=== PATIENT | female | born 1950 | race Caucasian/White ===

== ENCOUNTER 2017-01-29 15:55 | Inpatient (IN) | payer OTHER ==
[~2017-01-29] VITALS: Ht 167.6 cm; Wt 102.6 kg
--- NOTE | ~2017-01-29 | 2DMMODE ---
[facility] [place] [address] 2 D/M-MODE ECHOCARDIOGRAM Name: THERESE HINES Room #: 213-P ADM IN M.R.#: [id number] Admission: 01/29/17 Attend Phys: Anthony Thompson Discharge: Date of : 52 Date of Service: 01/31/17 1304 Report #: [id number] THIS REPORT FOR: //name// APPROVED REPORT Study performed: 01/31/2017 11:18:55 EXAM: Comprehensive 2D, Doppler, and color-flow Echocardiogram Patient Location: Bedside Blood Pressure: 119/61 mmHg HR: 90 bpm Other Information Study Quality: Adequate Indications Dyspnea Hypertension/HDD Pulmonary Embolism 2D Dimensions LVEF(%): 66.21 (>50%) IVSd: 15.41 (7-11mm) LVOT Diam: 20.83 (18-24mm) LVDd: 40.35 mm PWd: 15.52 (7-11mm) Ascending Aorta: 33.23 mm LVDs: 25.81 (25-40mm) IVC: 18.00 mm Aortic Root: 36.62 mm Liriano's LVEF: 66.21 % Aortic Valve AoV Peak Abad.: 1.35 m/s AO Peak Gr.: 7.25 mmHg LV Max P.73 mmHg LV Max: 1.09 m/s Mitral Valve MV PHT: 87.45 ms MV E Max Abad.: 0.72 m/s E/A Ratio: 0.8 MV A Abad.: 0.88 m/s MV Decel. Time: 301.56 ms Pulmonary Valve PV Peak Abad.: 0.94 m/s PV Peak Gr.: 3.53 mmHg [facility] [address] [address] [place] [address] 2 D/M-MODE ECHOCARDIOGRAM Name: THERESE HINES Room #: 213- ADM IN .R.#: [id number] Admission: 01/29/17 Attend Phys: Anthony Thompson Discharge: Date of : 52 Date of Service: 01/31/17 1304 Report #: [id number] Tricuspid Valve RAP Estimate: 5.00 mmHg Left Ventricle The left ventricle is normal size. There is normal LV segmental wall motion. There is normal left ventricular wall thickness. The left ventricular systolic function is normal. The left ventricular ejection fraction is within the normal range. LVEF is 60-65%. Grade I - abnormal relaxation pattern. Right Ventricle The right ventricle is normal size. The right ventricular systolic function is normal. Atria The left atrium size is normal. The right atrium size is normal. Aortic Valve The Aortic valve is sclerotic. Trace aortic regurgitation. There is no aortic valvular stenosis. Mitral Valve The mitral valve is normal in structure. There is no mitral valve regurgitation noted. Tricuspid Valve The tricuspid valve is normal in structure. There is no tricuspid valve regurgitation noted. Pulmonic Valve The pulmonary valve is normal in structure. There is no pulmonic valvular regurgitation. Great Vessels The aortic root is normal in size. IVC is normal in size and collapses >50% with inspiration. Pericardium There is no pericardial effusion. <Conclusion> The left ventricular systolic function is normal. The left ventricular ejection fraction is 55-60% There is normal LV segmental wall motion. Normal RV size and function [facility] [place] [address] 2 D/M-MODE ECHOCARDIOGRAM Name: THERESE HINES Room #: 213-P ADM IN M.R.#: [id number] Admission: 01/29/17 Attend Phys: Anthony Thompson Discharge: Date of : 52 Date of Service: 01/31/17 1304 Report #: [id number] The Aortic valve is sclerotic. There is no aortic valvular stenosis or insufficiency. The mitral valve is normal in structure.There is no mitral valve regurgitation. Pulmonary artery pressure could not be ascertained. There is no pericardial effusion. <ELECTRONICALLY SIGNED> By: Kyle Rosario MD, [facility] 01/31/17 1304 1304 1304 Kyle Rosario MD, FACC /INF
--- NOTE | ~2017-01-29 | EKG ---
[place] [address] [facility] [place] [address] ELECTROCARDIOGRAM REPORT Name: THERESE HINES Room #: 213-P ADM IN M.R.#: [id number] Admission: 01/29/17 Attend Phys: Kelin Steven MD Discharge: Date of : 52 Report #: [id number] THIS REPORT FOR: //name// [facility] ED Test Date: 2017-01-29 Test Time: 17:08:22 Pat Name: THERESE HINES Department: Room: 213 Gender: F Make Up Girl: MZOOK : 1950 Requested By: Malachi Heath Order Number: [id number] MD: Kyle Rosario Measurements Intervals [place] Rate: 80 P: 19 KS: 170 QRS: -6 QRSD: 85 T: 40 QT: 390 QTc: 450 Interpretive Statements Sinus rhythm Atrial premature complex Low voltage, precordial leads No previous ECG available for comparison Electronically Signed On 01-30-2017 11:48:23 CDT by Kyle Rosario [email or web address] <ELECTRONICALLY SIGNED> By: Kyle Rosario MD, [facility] 01/30/17 1148 1708 07 Kyle Rosario MD, FACC /EPI
--- NOTE | ~2017-01-29 | H ---
[facility] [place] [address] HISTORY AND PHYSICAL Name: THERESE HINES Room #: 213-P ADM IN M.R.#: [id number] Admission: 01/29/17 Attend Phys: Kelin Steven MD Discharge: Date of : 52 Report #: [id number] THIS REPORT FOR: //name// CC: FAM unknown Kelin Steven A 66-year-old female, 2 days status post right knee replacement for degenerative arthritis with hypoxemia noted at the orthopedic institute. HISTORY OF PRESENT ILLNESS: This is a patient who was having difficulty with low oxygen saturations postoperatively at the orthopedic institute and there was some concern that may be this represented pulmonary embolism and she was sent over to the emergency room for further evaluation. The patient denies significant shortness of breath. Denies chest discomfort, tightness, orthopnea, PND, but is concerned because of the saturation that she reports to be in the mid 80s. PAST MEDICAL HISTORY: Really minimal. She has degenerative arthritis. She also has hypertension. She has had a previous hysterectomy. MEDICATIONS: At home was lisinopril. SOCIAL HISTORY: She is single, previous smoker. No alcohol of any significance. REVIEW OF SYSTEMS: Mainly positive for urinary incontinence, which has been a longstanding duration. She denies symptoms of obstructive sleep apnea, but she is not sure because she is single. PHYSICAL EXAMINATION: GENERAL: Shows her lying in bed. She is awake, alert and oriented. She is in absolutely no distress. VITAL SIGNS: She has oxygen at about 2 liters. Vital signs were stable. HEENT: Otherwise, negative. NECK: Supple, without thyromegaly or adenopathy. CHEST: Clear. CARDIOVASCULAR: Shows a regular rate and rhythm without murmur. ABDOMEN: Soft and nontender without hepatosplenomegaly. EXTREMITIES: No cyanosis, clubbing or edema. There was a clean right knee bandage in place, no edema. NEUROLOGIC: Nonfocal. She is mildly anemic. LABORATORY DATA: She has a hemoglobin of 8.8. She has a creatinine of 1.2, D-dimer of 2.38. Troponins . BNP was 4795. Electrocardiogram showed no ischemia. She has a partially calcified 4 x 5 cm mass with calcified hilar nodes, otherwise negative findings. [address] [address] HISTORY AND PHYSICAL Name: THERESE HINES Room #: 213-P [facility] IN M.R.#: [id number] Admission: 01/29/17 Attend Phys: Kelin Steven MD Discharge: Date of : 52 Report #: [id number] ASSESSMENT: This is a 66-year-old female now 3 days status post right total knee replacement and certainly in no distress at this time and I am not sure that this represents ischemic heart disease. We need to be as thorough as we can here, but it just seems unlikely that without symptoms and EKG findings, this represents cardiac ischemia. The possibility of pulmonary embolism always exists and with the D-dimer elevated, CT to rule out pulmonary embolism is in order but this might just represent the findings of obstructive sleep apnea. Time will tell. We will follow her closely in the PCU with the help of the cardiology service. By: 0950 1306 Titi Turcios MD /nt
--- NOTE | ~2017-01-29 | D ---
[facility] [place] [address] DISCHARGE SUMMARY Name: THERESE HINES Room #: 213-P [facility] IN M.R.#: [id number] Admission: 01/29/17 Attend Phys: Kelin Steven MD Discharge: 02/01/17 Date of : 52 Report #: [id number] THIS REPORT FOR: //name// CC: FAM unknown Kelin Steven FINAL DIAGNOSES: 1. Pulmonary embolus. 2. Recent right total knee replacement. 3. Hyperkalemia. 4. Acute kidney injury. 5. Hypertension. HOSPITAL COURSE: The patient was transferred from an [facility] for evaluation of hypoxia. V/Q scan revealed a high probability of pulmonary embolus. She was treated initially with heparin and then converted to Xarelto. The cardiac service saw her in consultation, ruled out an acute cardiac event. Other home medications were continued, although ELVIS inhibitor was discontinued. She may have had a degree of ATN causing acute kidney injury related with slightly elevated creatinine during her stay and potassium. Her creatinine normalized and BUN was decreasing by the time of discharge. However, potassium remained slightly high and this was treated with oral Kayexalate. She had no other interval medical complications. However, her rehabilitation for a right total knee replacement was set back due to this acute illness. She was not stable to return home and was recommended for inpatient rehabilitation. PHYSICAL EXAMINATION: GENERAL: On the day of discharge, she was awake and alert. VITAL SIGNS: Stable. LUNGS: Clear. HEART: Regular. ABDOMEN: Soft. EXTREMITIES: Showed no edema. DISPOSITION: She will be transferred to [facility] under the care of Dr. Steven. She had physical and occupational therapy. Regular diet. Activity as tolerated. Daily dressing care. Follow up with her orthopedic surgeon in 2-4 weeks and she will follow up with her PCP following discharge from rehabilitation. She will continue Xarelto 15 mg b.i.d. for a total of 21 days and then switch to 20 mg daily for 3-6 months. <ELECTRONICALLY SIGNED> By: Tao Obregon MD 02/02/17 1240 0926 [id number] Tao Obregon MD /nt
--- NOTE | ~2017-01-29 | HC ---
[facility] [place] [address] CONSULTATION Name: THERESE HINES Room #: 213-P [facility] IN M.R.#: [id number] Admission: 01/29/17 Attend Phys: Kelin Steven MD Discharge: Date of : 52 Report #: [id number] THIS REPORT FOR: //name// CC: FAM unknown Kelin Steven DATE OF SERVICE: 01/30/2017 REASON FOR CONSULTATION: Shortness of breath, elevated troponin. HISTORY OF PRESENT ILLNESS: The patient is a very nice 66-year-old woman who has a history of hypertension. She underwent right total knee replacement on . On Tuesday morning, she developed hypoxemia and confusion. She was transported to [facility] where her troponin was elevated at 1.79. A ProBNP was elevated at 4795. She denies chest pain, pressure or ischemic type symptoms. She denies shortness of breath, heart failure symptoms, palpitations, near syncope or syncope. She was seen preoperatively by Dr. Acosta preoperatively in cardiovascular clearance. No specific testing was performed in this asymptomatic woman. MEDICATIONS: Her medicines include lisinopril and hydrochlorothiazide 20/25 one daily, verapamil SR 360 mg daily, Aldactone 50 mg twice daily. PAST MEDICAL HISTORY: Medical records have been reviewed and include history of hypertension, hysterectomy and recent knee replacement. SOCIAL HISTORY: She is a former smoker, lives alone. FAMILY HISTORY: Unremarkable for premature coronary disease. REVIEW OF SYSTEMS: All systems negative except as that noted above. PHYSICAL EXAMINATION: GENERAL: A pleasant woman in no distress. VITAL SIGNS: Blood pressure is 125/74, heart rate is 74 and regular. She is afebrile, 5 feet 6 inches tall, pounds. HEENT: There are neither xanthelasma, subcutaneous xanthomata, oral mucosal or digital cyanosis or kyphoscoliosis present. CHEST: Clear to auscultation and percussion. CARDIOVASCULAR: Regular rate and rhythm with an increased pulmonic closure sound. ABDOMEN: Soft and nontender. EXTREMITIES: Without cyanosis, clubbing or edema. Radial pulses are 2+. NEUROLOGIC: She is alert with a nonfocal exam. LABORATORY DATA: Sodium is 131, potassium 4.8, creatinine 1.4, magnesium 1[place] [address] CONSULTATION Name: THERESE HINES Room #: [facility] ADM IN M.R.#: [id number] Admission: 01/29/17 Attend Phys: Kelin Steven MD Discharge: Date of : 52 Report #: [id number] Troponin 1.79. White count 8.7, hemoglobin 8.8. Chest x-ray demonstrates no effusion or infiltrate. EKG, sinus rhythm, normal tracing. IMPRESSION: 1. Probable pulmonary embolism. 2. Status post right knee replacement. 3. Hypertension. 4. Chronic kidney disease. 5. Calcified lung mass, bening, chronic finding RECOMMENDATIONS: 1. V/Q scan. 2. Echocardiogram with Doppler. 3. If PE is confirmed, high risk features are present with elevated BNP and troponin. At this point, therapy has been started with intravenous heparin. Further thoughts will be forthcoming based on this evaluation. Thank you for asking me to participate in the care of this nice woman. <ELECTRONICALLY SIGNED> By: Kyle Rosario MD, FACC 01/31/17 0826 0906 0025 Kyle Rosario MD, FACC /nt
[2017-01-29 15:56] VITALS: BP 116/62
[2017-01-29] MEDS ORDERED: LISINOPRIL10 MG PO (16:35)
[2017-01-29 18:19] LABS: ABSOLUTE NEUTROPHILS 6.5 thou/uL (1.4-8.2); BASOPHILS 0.2 % (0.0-2.0); HEMATOCRIT 25.5 % (37.0-47.0); HEMOGLOBIN 8.8 gm/dL (12.0-15.0); LYMPHOCYTES 14.5 % (24.0-44.0); MCH 32.7 pg (26.0-34.0); MCHC 34.3 g/dL (28.0-37.0); MCV 95.4 fL (80.0-100.0); PLATELET COUNT 162 thou/uL (150-400); POLYS 74.3 % (36.0-66.0); RBC 2.68 mil/uL (4.20-5.00); RDW 12.9 % (10.5-14.5); WBC 8.7 thou/uL (4.0-11.0)
[2017-01-29 18:21] LABS: MANUAL DIFF NO
[2017-01-29 18:37] LABS: APTT 36.4 Seconds (24.5-32.8); INR 1.8; PROTIME 18.8 Seconds (9.3-11.4)
[2017-01-29 18:58] LABS: ALBUMIN 2.3 g/dL (3.4-5.0); CALCIUM 7.8 mg/dL (8.5-10.1); CREATININE 1.4 mg/dL (0.6-1.0); MAGNESIUM 1.7 mg/dL (1.8-2.4); POTASSIUM 4.8 mmol/L (3.5-5.1); TOTAL BILIRUBIN 0.2 mg/dL (<0.1-1.0); TOTAL PROTEIN 5.7 g/dL (6.4-8.2)
[2017-01-29 19:02] LABS: TROPONIN-I 1.12 ng/mL (<0.04-0.07)
[2017-01-29 20:43] VITALS: BP 114/84
[2017-01-29 21:50] VITALS: BP 113/67
[2017-01-29 23:40] VITALS: BP 106/63
[2017-01-30 03:47] VITALS: BP 125/74
[2017-01-30 08:00] VITALS: BP 126/76
[2017-01-30 09:04] LABS: CALCIUM 7.9 mg/dL (8.5-10.1); CREATININE 1.2 mg/dL (0.6-1.0); POTASSIUM 4.9 mmol/L (3.5-5.1)
[2017-01-30 12:00] VITALS: BP 115/68
[2017-01-30 16:45] VITALS: BP 116/70
[2017-01-30 19:51] VITALS: BP 115/54
[2017-01-31 03:00] VITALS: BP 112/64
[2017-01-31 03:20] LABS: HEMATOCRIT 25.2 % (37.0-47.0); HEMOGLOBIN 8.6 gm/dL (12.0-15.0); MCH 32.8 pg (26.0-34.0); MCHC 34.1 g/dL (28.0-37.0); MCV 96.2 fL (80.0-100.0); RBC 2.62 mil/uL (4.20-5.00); RDW 12.9 % (10.5-14.5); WBC 6.5 thou/uL (4.0-11.0)
[2017-01-31 03:58] LABS: CALCIUM 7.7 mg/dL (8.5-10.1); CREATININE 1.2 mg/dL (0.6-1.0); POTASSIUM 5.2 mmol/L (3.5-5.1)
[2017-01-31 07:21] VITALS: BP 119/61
[2017-01-31] MEDS ORDERED: XARELTO15 MG PO (10:50)
[2017-01-31] MEDS ORDERED: XARELTO20 MG PO (10:51)
[2017-01-31 11:23] VITALS: BP 102/50
[2017-01-31 17:09] VITALS: BP 126/61
[2017-01-31 19:13] VITALS: BP 126/68
[2017-02-01 03:42] VITALS: BP 126/68
[2017-02-01 04:24] LABS: HEMATOCRIT 26.7 % (37.0-47.0); MCH 32.4 pg (26.0-34.0); MCHC 33.7 g/dL (28.0-37.0); MCV 96.3 fL (80.0-100.0); RBC 2.77 mil/uL (4.20-5.00); RDW 12.7 % (10.5-14.5); WBC 6.7 thou/uL (4.0-11.0)
[2017-02-01 04:33] LABS: CALCIUM 8.2 mg/dL (8.5-10.1); CREATININE 1.1 mg/dL (0.6-1.0); POTASSIUM 5.5 mmol/L (3.5-5.1)
[2017-02-01 09:06] VITALS: BP 131/59
[2017-02-01] MEDS ORDERED: HYDROCODON-ACE1 EAC7 PO (09:20)
[2017-02-01] MEDS ORDERED: OXYBUTYNIN 5 MG5 M1 PO (09:20)
[2017-02-01] MEDS ORDERED: VERAPAMIL E.R240 M1 PO (09:20)
[2017-02-01 12:01] VITALS: BP 116/52
== END 2017-02-01 13:37 | DRG 175 ==
LOC: ER 15:55 → 2N 19:39 → EROBS 19:39 → 2N 20:43
PROVIDERS: Emergency Medicine; Internal Medicine; Internal Medicine Geriatric Medicine
DX: I26.99 Other pulmonary embolism without acute cor pulmonale (principal); N17.0 Acute kidney failure with tubular necrosis; I12.9 Hypertensive chronic kidney disease with stage 1 through stage 4 chronic kidney disease, or unspecified chronic kidney disease; N18.9 Chronic kidney disease, unspecified; D64.9 Anemia, unspecified; Z96.651 Presence of right artificial knee joint; R91.8 Other nonspecific abnormal finding of lung field; E87.5 Hyperkalemia; Z90.710 Acquired absence of both cervix and uterus; Z87.891 Personal history of nicotine dependence
CPT/HCPCS: 10081